=== PATIENT | female | born 1975 | race Caucasian/White ===

== ENCOUNTER 2017-03-13 22:10 | Emergency (ER) | payer BC ==
[~2017-03-13] VITALS: Ht 162.5 cm; Wt 130.2 kg
[~2017-03-13 22:10] MED LIST: ANUSOL-HC25 MG RC; AUGMENTIN 875 M1 TAB PO; BACTRIM DS 8001 TA1 PO; CEPHALEXIN500 M1 PO; CLARITIN10 MG PO; CLINDAMYCIN HC300 MG PO; DAYPRO600 M1 PO; FISH OIL SUPER1 SGL PO; FLUCONAZOLE100 MG PO; HYDROCHLOROTHIA25 MG PO; HYDROCODONE BIT1 T11 PO; IBUPROFEN600 MG PO; KEFLEX500 MG PO; NAPROSYN500 MG PO; PROTONIX40 MG PO; PYRIDIUM200 MG PO; ROBAXIN500 MG PO; TRAMADOL HCL50 MG PO; TYLENOL W/CODEI1 TA2 PO; ULTRAM50 MG PO; ZANTAC150 MG PO; ZOFRAN ODT4 MG SL; ZOFRAN4 MG PO
[2017-03-13 22:46] LABS: BILIRUBIN NEGATIVE (NEGATIVE); BLOOD NEGATIVE (NEGATIVE); CLARITY SL CLOUDY (CLEAR); COLOR YELLOW (YELLOW); GLUCOSE NEGATIVE (NEGATIVE); KETONE NEGATIVE (NEGATIVE); LEUKO ESTERASE 2+ (NEGATIVE); NITRITE NEGATIVE (NEGATIVE); PROTEIN NEGATIVE (NEGATIVE); UROBILINOGEN 0.2 E.U./dl (0.2-1.0)
[2017-03-13 22:53] LABS: BACTERIA 2+; EPITHELIAL CELLS 16-20; URINE REFLEX COMMENT YES (NO); WBC 16-20 wbc/hpf (0-5)
[2017-03-13] MEDS ORDERED: CIPRO250 MG PO (23:17)
[2017-03-13] MEDS ORDERED: FLUCONAZOLE100 MG PO (23:17)
== END 2017-03-13 23:15 | disposition home or self-care (01) ==
LOC: ED
PROVIDERS: Emergency Medicine Emergency Medical Services
DX: B37.3 Candidiasis of vulva and vagina (principal); N39.0 Urinary tract infection, site not specified; Z90.49 Acquired absence of other specified parts of digestive tract

== ENCOUNTER 2017-04-04 17:19 | Emergency (ER) | payer BC ==
[~2017-04-04] VITALS: Ht 162.5 cm; Wt 130.2 kg
[~2017-04-04 17:19] MED LIST changes: +CIPRO250 MG PO
[2017-04-04] MEDS ORDERED: CLINDAMYCIN HC300 MG PO (19:12)
== END 2017-04-04 19:17 | disposition home or self-care (01) ==
LOC: ED 17:19
DX: K08.89 Other specified disorders of teeth and supporting structures (principal); J01.10 Acute frontal sinusitis, unspecified; Z90.49 Acquired absence of other specified parts of digestive tract; Z79.899 Other long term (current) drug therapy

== ENCOUNTER 2017-04-20 18:31 | Emergency (ER) | payer BC ==
[~2017-04-20] VITALS: Ht 162.5 cm; Wt 130.2 kg
[2017-04-20] MEDS ORDERED: LEVAQUIN750 M1 PO (19:30)
== END 2017-04-20 19:54 | disposition home or self-care (01) ==
LOC: ED 18:31
DX: J06.9 Acute upper respiratory infection, unspecified (principal); Z90.49 Acquired absence of other specified parts of digestive tract; Z79.899 Other long term (current) drug therapy

== ENCOUNTER 2017-05-26 14:39 | Emergency (ER) | payer BC ==
[~2017-05-26] VITALS: Ht 162.5 cm; Wt 130.2 kg
[~2017-05-26 14:39] MED LIST changes: +LEVAQUIN750 M1 PO
[2017-05-26] MEDS ORDERED: Meclizine25 MG PO (17:06)
[2017-05-26] MEDS ORDERED: AMOXICILLIN500 M2 PO (17:06)
== END 2017-05-26 17:09 | disposition home or self-care (01) ==
LOC: ED 14:39
DX: H83.01 Labyrinthitis, right ear (principal); J01.90 Acute sinusitis, unspecified

== ENCOUNTER → 2017-07-20 | Outpatient (CLI) | payer BC ==
[~2017-07-20] MED LIST changes: +AMOXICILLIN500 M2 PO; +Meclizine25 MG PO
== END | disposition home or self-care (01) ==
LOC: MAMMO 09:41
DX: Z12.31 Encounter for screening mammogram for malignant neoplasm of breast (principal)

== ENCOUNTER 2019-05-31 16:53 | Emergency (ER) | payer BC ==
[~2019-05-31] VITALS: Ht 165.1 cm; Wt 127.0 kg
[~2019-05-31 16:53] MED LIST changes: +PENICILLIN-VK500 MG PO; +TYLENOL325 M1 PO
[2019-05-31] MEDS ORDERED: PENICILLIN-VK500 M1 PO (17:04)
[2019-05-31] MEDS ORDERED: ANAPROX DS550 MG PO (17:04)
[2019-05-31] MEDS ORDERED: KAPSPARGO SPRIN25 MG PO (17:12)
== END 2019-05-31 17:16 | disposition home or self-care (01) ==
LOC: ED 16:53
DX: K08.89 Other specified disorders of teeth and supporting structures (principal); Z79.2 Long term (current) use of antibiotics; Z79.899 Other long term (current) drug therapy; Z90.49 Acquired absence of other specified parts of digestive tract

== ENCOUNTER → 2019-09-13 | Outpatient (CLI) | payer BC ==
[~2019-09-13] MED LIST changes: +ANAPROX DS550 MG PO; +KAPSPARGO SPRIN25 MG PO; +PENICILLIN-VK500 M1 PO
== END | disposition home or self-care (01) ==
LOC: RAD 11:59
DX: M54.5 Low back pain (principal); G89.29 Other chronic pain; I10 Essential (primary) hypertension

== ENCOUNTER → 2020-04-28 | Outpatient (CLI) | payer BC | END | disposition home or self-care (01) | LOC: MAMMO 13:30 | DX: Z12.31 Encounter for screening mammogram for malignant neoplasm of breast (principal) ==

== ENCOUNTER → 2020-05-04 | Outpatient (CLI) | payer BC | END | disposition home or self-care (01) | LOC: MRI 00:13 | DX: M51.26 Other intervertebral disc displacement, lumbar region (principal); M48.061 Spinal stenosis, lumbar region without neurogenic claudication; M47.816 Spondylosis without myelopathy or radiculopathy, lumbar region ==

== ENCOUNTER → 2022-06-08 | Outpatient (CLI) | payer BC | LOC: MAMMO 13:28 | PROVIDERS: ATTEND Physician Assistant | DX: Z12.31 Encounter for screening mammogram for malignant neoplasm of breast (principal) ==

== ENCOUNTER 2024-05-20 13:05 | Emergency (ER) | payer BC ==
[~2024-05-20] VITALS: Ht 165.1 cm
[2024-05-20] MEDS ORDERED: Acetaminophen/Oxycodone 5 MG/325 MG TABLET PO ONE (13:30)
[2024-05-20] MEDS ORDERED: MELOXICAM15 MG PO (14:46)
== END 2024-05-20 15:49 | disposition home or self-care (01) ==
LOC: ED 13:05
DX: M25.512 Pain in left shoulder (principal); M79.602 Pain in left arm; I10 Essential (primary) hypertension; Z90.49 Acquired absence of other specified parts of digestive tract

== ENCOUNTER 2024-11-05 16:01 | Emergency (ER) | payer BC ==
[~2024-11-05] VITALS: Ht 165.1 cm; Wt 127.0 kg
[~2024-11-05 16:01] MED LIST changes: +MELOXICAM15 MG PO
[2024-11-05] MEDS ORDERED: AMOX-CLAV 875-1 EACH PO (17:16)
[2024-11-05] MEDS ORDERED: NAPROSYN500 MG PO (17:18)
[2024-11-05] MEDS ORDERED: Amoxicillin/Clavulanate Pota 875 MG TAB PO ONE (17:20)
[2024-11-05] MEDS ORDERED: Acetaminophen/Hydrocodone 5 MG/325 MG TABLET PO ONE (17:20)
== END 2024-11-05 17:23 | disposition home or self-care (01) ==
LOC: ED 16:01
DX: H66.92 Otitis media, unspecified, left ear (principal); H92.01 Otalgia, right ear; K02.9 Dental caries, unspecified; K03.81 Cracked tooth; Z79.899 Other long term (current) drug therapy; Z90.49 Acquired absence of other specified parts of digestive tract

== ENCOUNTER 2025-02-07 18:54 | Emergency (ER) | payer SELFPAY ==
[~2025-02-07] VITALS: Ht 165.1 cm; Wt 132.9 kg
[~2025-02-07 18:54] MED LIST changes: +AMOX-CLAV 875-1 EACH PO
[2025-02-07 20:03] LABS: BASO % 0.4 % (0.0-1.0); EOS # 0.2 10*3/uL (0.0-0.4); HEMATOCRIT 39.5 % (37.0-47.0); MEAN CELL VOLUME 89.8 fl (81.0-99.0); MEAN CORPUSCULAR HGB 29.8 pg (27.0-31.0); MEAN CORPUSCULAR HGB CONC 33.2 g/dl (33.0-37.0); NEUT # 6.9 10*3/uL (2.3-7.9); NEUT % 66.3 % (47.0-73.0); PLATELET COUNT AUTOMATED 230 10*3/uL (130-400); RED CELL DISTRI WIDTH 12.5 % (0-14.5); WHITE BLOOD COUNT 10.4 10*3/uL (4.8-10.8)
[2025-02-07 20:25] LABS: BUN 9 mg/dl (9-23); CHLORIDE 101 mmol/L (98-107); POTASSIUM 3.3 mmol/L (3.4-5.1)
[2025-02-07] MEDS ORDERED: FUROSEMIDE 40 MG/4 ML VIAL IM ONE (21:15)
[2025-02-07] MEDS ORDERED: POTASSIUM CHLORIDE 20 MEQ TAB PO ONE (21:25)
== END 2025-02-07 21:37 | disposition home or self-care (01) ==
LOC: ED 18:54
PROVIDERS: Internal Medicine
DX: R60.0 Localized edema (principal); Z79.899 Other long term (current) drug therapy; Z90.49 Acquired absence of other specified parts of digestive tract; Z53.29 Procedure and treatment not carried out because of patient's decision for other reasons

== ENCOUNTER 2025-05-05 18:36 | Emergency (ER) | payer OTHER ==
[~2025-05-05] VITALS: Ht 165.1 cm; Wt 125.2 kg
[2025-05-05] MEDS ORDERED: Acetaminophen/Oxycodone 5 MG/325 MG TABLET PO ONE (19:35)
[2025-05-05] MEDS ORDERED: TRAMADOL HCL50 MG PO (22:12)
[2025-05-05] MEDS ORDERED: ZANAFLEX4 MG PO (22:12)
[2025-05-05] MEDS ORDERED: Water, Sterile 10 ML VIAL ONE (22:27)
== END 2025-05-05 22:17 | disposition home or self-care (01) ==
LOC: ED 18:36
DX: S83.92XA Sprain of unspecified site of left knee, initial encounter (principal); Z79.899 Other long term (current) drug therapy; Z90.49 Acquired absence of other specified parts of digestive tract; X50.1XXA Overexertion from prolonged static or awkward postures, initial encounter; Y93.89 Activity, other specified; Y92.89 Other specified places as the place of occurrence of the external cause; Y99.8 Other external cause status

== ENCOUNTER → 2025-09-11 | Day surgery (SDC) | payer OTHER ==
[2025-09-03 10:27] LABS: BUN 14 mg/dl (9-23)
[~2025-09-11] VITALS: Ht 177.8 cm; Wt 120.7 kg
[~2025-09-11] MED LIST changes: +LASIX20 MG PO; +Lactated Ringer's Solution 1,000 ML IV ONE; +Lactated Ringer's Solution 1,000 ML IV SCH; +Lidocaine Hydrochloride 30 ML VIAL ONE; +Lidocaine Hydrochloride 5 ML VIAL IV ONE; +METFORMIN HYDR500 MG PO; +Midazolam Hydrochloride 2 MG/2 ML VIAL IV ONE; +Ondansetron Hydrochloride 4 MG/2 ML VIAL IV ONE; +PROPOFOL 200 MG/20 ML VIAL IV ONE; +Water, Sterile 10 ML VIAL IV ONE; +Water, Sterile 10 ML VIAL ONE; +ZANAFLEX4 MG PO
[2025-09-11 07:40] VITALS: BP 118/72
[2025-09-11 08:11] LABS: BUN 13 mg/dl (9-23)
[2025-09-11 09:30] VITALS: BP 112/70
[2025-09-11 09:45] VITALS: BP 117/72
[2025-09-11 10:00] VITALS: BP 120/72
== END | disposition home or self-care (01) ==
LOC: SDC 09-02 08:45
PROVIDERS: Nurse Anesthetist, Certified Registered; ATTEND Orthopaedic Surgery
DX: G56.02 Carpal tunnel syndrome, left upper limb (principal); I10 Essential (primary) hypertension; E11.9 Type 2 diabetes mellitus without complications; Z98.890 Other specified postprocedural states; Z90.49 Acquired absence of other specified parts of digestive tract; Z79.899 Other long term (current) drug therapy

== ENCOUNTER → 2025-10-28 | Day surgery (SDC) | payer OTHER ==
[2025-10-27 10:53] LABS: BUN 11 mg/dl (9-23)
[~2025-10-28] VITALS: Ht 162.5 cm; Wt 110.7 kg
[~2025-10-28] MED LIST changes: +ACETAMINOPHEN 100 ML IV ONE; -Lactated Ringer's Solution 1,000 ML IV SCH; -Midazolam Hydrochloride 2 MG/2 ML VIAL IV ONE; -Ondansetron Hydrochloride 4 MG/2 ML VIAL IV ONE; +POTASSIUM99 M7 PO; -Water, Sterile 10 ML VIAL IV ONE; -Water, Sterile 10 ML VIAL ONE; +ceFAZolin sodium/sodium chlor 20 ML IV ONE
[2025-10-28 08:48] VITALS: BP 130/56
[2025-10-28 10:05] VITALS: BP 119/62
[2025-10-28 10:20] VITALS: BP 110/60
[2025-10-28 10:35] VITALS: BP 116/68
== END | disposition home or self-care (01) ==
LOC: SDC 10-27 08:00
PROVIDERS: ATTEND Orthopaedic Surgery
DX: G56.03 Carpal tunnel syndrome, bilateral upper limbs (principal); E11.9 Type 2 diabetes mellitus without complications; I11.0 Hypertensive heart disease with heart failure; Z98.890 Other specified postprocedural states; Z90.49 Acquired absence of other specified parts of digestive tract